=== PATIENT | female | born 1940 | race Caucasian/White ===

== ENCOUNTER 2017-06-27 05:36 | Inpatient (IN) | payer OTHER ==
[~2017-06-27] VITALS: Ht 149.9 cm; Wt 61.7 kg
[2017-06-27] MEDS ORDERED: AMLO5TAB4 PO (06:06)
[2017-06-27] MEDS ORDERED: LOSA25TA3 PO (06:06)
[2017-06-27] MEDS ORDERED: MIRA50TA PO (06:06)
[2017-06-27] MEDS ORDERED: ACETAMINOPHEN 500 MG TABLET ONE (06:26)
[2017-06-27] MEDS ORDERED: oxyCODONE HCL 10 MG TAB.ER.12H PO ONE ×2 (06:27→07:15)
[2017-06-27] MEDS ORDERED: GABAPENTIN 300 MG CAPSULE ONE (06:27)
[2017-06-27] MEDS ORDERED: CELECOXIB 200 MG CAPSULE ONE (06:27)
[2017-06-27] MEDS ORDERED: TRANEXAMIC ACID 650 MG TABLET ONE (06:27)
[2017-06-27] MEDS ORDERED: POLYMYXIN 500,000/BACIT.10,000 UNITS in NS IRR 1 L IR ONE (06:56)
[2017-06-27] MEDS ORDERED: SEVOFLURANE 15 MIN GAS INH ONE (07:06)
[2017-06-27] MEDS ORDERED: ROPIVACAINE HCL/PF 5 MG/ML 0.5% 30 ML VIAL INJ ONE (07:06)
[2017-06-27] MEDS ORDERED: MORPHINE SULFATE 10MG/10ML PF AMP EP ONE (07:06)
[2017-06-27] MEDS ORDERED: fentaNYL CITRATE/PF 100 MCG/2 ML AMP IVP ONE (07:06)
[2017-06-27] MEDS ORDERED: DEXAMETHASONE SOD PHOSPHATE 4 MG/ML VIAL IVP ONE (07:06)
[2017-06-27] MEDS ORDERED: VANCOMYCIN HCL 1000 MG/VIAL IV ONE (07:06)
[2017-06-27] MEDS ORDERED: TRANEXAMIC ACID 1,000 MG/10 ML VIAL IV ONE (07:06)
[2017-06-27] MEDS ORDERED: METOCLOPRAMIDE HCL 10 MG/2 ML VIAL IVP ONE (07:06)
[2017-06-27] MEDS ORDERED: MIDAZOLAM HCL 5 MG/5 ML VIAL IVP ONE (07:06)
[2017-06-27] MEDS ORDERED: LR 1,000 ML IV.SOLN IV ONE (07:06)
[2017-06-27] MEDS ORDERED: NORMAL SALINE 10 ML VIAL IVP ONE (07:06)
[2017-06-27] MEDS ORDERED: EPINEPHrine 1 MG/ML AMP IVP ONE (07:06)
[2017-06-27] MEDS ORDERED: KETOROLAC TROMETHAMINE 30 MG VIAL IVP ONE (07:06)
[2017-06-27] MEDS ORDERED: PROPOFOL 200MG/ 20ML VIAL (DIPRIVAN) IV ONE (07:06)
[2017-06-27] MEDS ORDERED: NS 100 ML BAG IV ONE (07:06)
[2017-06-27] MEDS ORDERED: CEFAZOLIN 2 GM IVPB PREMIX 50 ML IV ONE ×2 (07:10→07:15)
[2017-06-27] MEDS ORDERED: ACETAMINOPHEN 500 MG TABLET PO ONE (07:15)
[2017-06-27] MEDS ORDERED: TRANEXAMIC ACID 650 MG TABLET PO ONE (07:15)
[2017-06-27] MEDS ORDERED: NACL 0.9% 1,000 ML IV ONE (07:15)
[2017-06-27] MEDS ORDERED: GABAPENTIN 300 MG CAPSULE PO ONE (07:15)
[2017-06-27] MEDS ORDERED: CELECOXIB 200 MG CAPSULE PO ONE (07:15)
[2017-06-27] MEDS ORDERED: LR 1,000 ML IV ONE (08:52)
[2017-06-27] MEDS ORDERED: NALBUPHINE HCL 10 MG/ML AMP IVP PRN (09:00)
[2017-06-27] MEDS ORDERED: KETOROLAC TROMETHAMINE 30 MG VIAL IM PRN (09:00)
[2017-06-27] MEDS ORDERED: NALOXONE HCL 0.4 MG/ML AMP (NARCAN) IVP PRN (09:00)
[2017-06-27] MEDS ORDERED: ePHEDrine sulfate 50 MG/ML VIAL IVP PRN (09:00)
[2017-06-27] MEDS ORDERED: DIPHENHYDRAMINE INJ 50 MG/ML VIAL IVP PRN (09:00)
[2017-06-27] MEDS ORDERED: fentaNYL CITRATE/PF 100 MCG/2 ML AMP IVP PRN (09:00)
[2017-06-27] MEDS ORDERED: ONDANSETRON HCL 4 MG/2 ML VIAL IVP PRN ×2 (09:00→09:15)
[2017-06-27] MEDS: ROPIVACAINE 0.2% 550 ML INJ SCH (09:09)
[2017-06-27] MEDS ORDERED: KETOROLAC TROMETHAMINE 15 MG VIAL IVP PRN (09:15)
[2017-06-27] MEDS ORDERED: DIPHENHYDRAMINE HCL 25 MG CAPSULE PO PRN (09:15)
[2017-06-27] MEDS ORDERED: SENNOSIDES 8.6 MG TABLET PO PRN (09:15)
[2017-06-27] MEDS ORDERED: oxyCODONE HCL 5 MG TABLET PO PRN (09:15)
[2017-06-27] MEDS ORDERED: PROMETHAZINE HCL 25 MG/ML AMP IVP PRN (09:15)
[2017-06-27] MEDS ORDERED: MORPHINE 4 MG/ML INJ. SYRINGE IVP PRN (09:15)
[2017-06-27 10:20] VITALS: BP_SYST 119
[2017-06-27 10:29] VITALS: BP_SYST 119
[2017-06-27] MEDS: CEFAZOLIN 1 GM IVPB PREMIX 50 ML IV SCH ×2 (13:30→18:44)
[2017-06-27] MEDS: D5LR 1,000 ML IV SCH ×2 (13:33→20:27)
[2017-06-27] MEDS: ACETAMINOPHEN 500 MG TABLET PO SCH ×2 (15:22→20:26)
[2017-06-27] MEDS: ONDANSETRON HCL 4 MG/2 ML VIAL IVP PRN (17:56)
[2017-06-27] MEDS: CELECOXIB 200 MG CAPSULE PO SCH (20:26)
[2017-06-27] MEDS: GABAPENTIN 300 MG CAPSULE PO SCH (20:26)
[2017-06-28 00:25] VITALS: BP_SYST 134
[2017-06-28] MEDS: CEFAZOLIN 1 GM IVPB PREMIX 50 ML IV SCH (02:11)
[2017-06-28] MEDS: oxyCODONE HCL 5 MG TABLET PO PRN ×5 (02:11→23:08)
[2017-06-28] MEDS: D5LR 1,000 ML IV SCH ×3 (05:44→23:10)
[2017-06-28 06:12] VITALS: BP_SYST 131
[2017-06-28 06:29] LABS: BASOPHILS % (AUTO) 0.2 % (0.0-2.0); HEMATOCRIT 35.1 % (36-48); HEMOGLOBIN 11.8 g/dL (12.0-16.0); LYMPHOCYTES # (AUTO) 1.6 K/uL (1.0-5.5); LYMPHOCYTES % (AUTO) 9.5 % (20.5-51.5); MEAN CORPUSCULAR HEMOGLOBIN 31 pg (27-31); MEAN CORPUSCULAR HGB CONC 33 % (32-36); MEAN CORPUSCULAR VOLUME 92 fL (79.0-98.0); MONOCYTES % (AUTO) 6.2 % (1.7-9.3); NEUTROPHILS # (AUTO) 13.8 K/uL (1.8-7.7); NEUTROPHILS % (AUTO) 84.1 % (40.0-70.0); PLATELET COUNT (AUTO) 259 K/uL (130-430); RED CELL DISTRIBUTION WIDTH 12.2 % (9.0-15.0); WHITE BLOOD COUNT (AUTO) 16.4 K/uL (4.8-10.8)
[2017-06-28 06:38] LABS: ANION GAP 5 (5-15); CHLORIDE 107 mmol/L (98-107); CREATININE 0.91 mg/dL (0.55-1.30); GLUCOSE 139 mg/dL (70-99); POTASSIUM 4.2 mmol/L (3.5-5.1); SODIUM SERUM 140 mmol/L (136-145); UREA NITROGEN, BLOOD 15 mg/dL (8-21)
[2017-06-28 08:00] VITALS: BP_SYST 121
[2017-06-28] MEDS: RIVAROXABAN 10 MG TABLET PO SCH (08:41)
[2017-06-28] MEDS: CELECOXIB 200 MG CAPSULE PO SCH ×2 (08:41→20:34)
[2017-06-28] MEDS: LOSARTAN POTASSIUM 25 MG TABLET PO SCH (08:41)
[2017-06-28] MEDS: ONDANSETRON HCL 4 MG/2 ML VIAL IVP PRN (08:41)
[2017-06-28] MEDS: amLODIPine BESYLATE 5 MG TABLET PO SCH (08:42)
[2017-06-28] MEDS: ACETAMINOPHEN 500 MG TABLET PO SCH ×3 (08:42→20:34)
[2017-06-28] MEDS: MIRABEGRON 50 MG PO SCH (08:48)
[2017-06-28] MEDS ORDERED: NON-FORMULARY MEDICATION (Mirabegron (Myrbetriq) 50 MG) PO SCH (09:00)
[2017-06-28] MEDS: ROPIVACAINE 0.2% 550 ML INJ SCH (09:09)
[2017-06-28 11:33] VITALS: BP_SYST 138
[2017-06-28 15:28] VITALS: BP_SYST 126
[2017-06-28 20:00] VITALS: BP_SYST 140
[2017-06-28] MEDS: GABAPENTIN 300 MG CAPSULE PO SCH (20:33)
[2017-06-29 01:03] VITALS: BP_SYST 116
[2017-06-29 05:26] VITALS: BP_SYST 109
[2017-06-29 06:23] LABS: ANION GAP 2 (5-15); CALCIUM 8.7 mg/dL (8.4-11.0); CHLORIDE 110 mmol/L (98-107); CREATININE 0.83 mg/dL (0.55-1.30); GLUCOSE 127 mg/dL (70-99); POTASSIUM 4.1 mmol/L (3.5-5.1); SODIUM SERUM 141 mmol/L (136-145); UREA NITROGEN, BLOOD 14 mg/dL (8-21)
[2017-06-29 06:24] LABS: BASOPHILS % (AUTO) 0.3 % (0.0-2.0); EOSINOPHILS % (AUTO) 0.5 % (0.0-4.0); HEMATOCRIT 30.8 % (36-48); HEMOGLOBIN 10.1 g/dL (12.0-16.0); LYMPHOCYTES # (AUTO) 2.8 K/uL (1.0-5.5); LYMPHOCYTES % (AUTO) 28.9 % (20.5-51.5); MEAN CORPUSCULAR HEMOGLOBIN 30 pg (27-31); MEAN CORPUSCULAR HGB CONC 33 % (32-36); MEAN CORPUSCULAR VOLUME 92 fL (79.0-98.0); MONOCYTES # (AUTO) 1.3 K/uL (0.0-1.0); MONOCYTES % (AUTO) 13.3 % (1.7-9.3); NEUTROPHILS # (AUTO) 5.5 K/uL (1.8-7.7); PLATELET COUNT (AUTO) 228 K/uL (130-430); RED BLOOD CELL COUNT(AUTO) 3.35 MIL/uL (4.2-6.2); RED CELL DISTRIBUTION WIDTH 12.9 % (9.0-15.0); WHITE BLOOD COUNT (AUTO) 9.6 K/uL (4.8-10.8)
[2017-06-29 08:00] VITALS: BP_SYST 140
[2017-06-29] MEDS: amLODIPine BESYLATE 5 MG TABLET PO SCH (08:20)
[2017-06-29] MEDS: ACETAMINOPHEN 500 MG TABLET PO SCH (08:21)
[2017-06-29] MEDS: LOSARTAN POTASSIUM 25 MG TABLET PO SCH (08:22)
[2017-06-29] MEDS: ROPIVACAINE 0.2% 550 ML INJ SCH (09:09)
[2017-06-29] MEDS: RIVAROXABAN 10 MG TABLET PO SCH (09:57)
[2017-06-29] MEDS: CELECOXIB 200 MG CAPSULE PO SCH (09:57)
[2017-06-29] MEDS: MIRABEGRON 50 MG PO SCH (10:00)
[2017-06-29] MEDS: oxyCODONE HCL 5 MG TABLET PO PRN (11:57)
[2017-06-29 12:19] VITALS: BP_SYST 126
[2017-06-29 12:57] VITALS: BP_SYST 126
== END 2017-06-29 15:10 | DRG 470 ==
LOC: SMU 05:36 → STU 10:08 → SMU 06-28 10:31
PROVIDERS: ADMIT Orthopaedic Surgery; ATTEND Orthopaedic Surgery
PROC: 0SRD0J9 Replacement of Left Knee Joint with Synthetic Substitute, Cemented, Open Approach (ICD-10-PCS; principal; 2017-06-27 07:30)
DX: M17.12 Unilateral primary osteoarthritis, left knee (principal); I10 Essential (primary) hypertension
CPT/HCPCS: 36415; 80048; 85025; 87081; 88305; 88311; 94010; 97039; 97110-GP; 97116-GP; 97530-GP; C1713; C1776; J0171; J0690; J1100; J1885; J2250; J2270; J2274; J2405; J2704; J2765; J2795; J3010; J3370; J3490; J7030; J7120